=== PATIENT | female | born 1995 | race Caucasian/White ===

== ENCOUNTER 2019-07-04 10:09 | Emergency (ER) | payer OTHER ==
[~2019-07-04] VITALS: Ht 157.5 cm; Wt 49.2 kg
[2019-07-04] MEDS ORDERED: MULT-90 PO (10:17)
[2019-07-04 10:55] LABS: BASO # 0.1 10^3/uL (0.0-0.2); BASO % 0.4 % (0.0-1.0); EOS # 0.5 10^3/uL (0.0-0.5); EOS % 3.4 % (0.0-3.0); HEMATOCRIT 38.8 % (36.0-47.0); HEMOGLOBIN 12.5 g/dl (12.0-15.5); LYMPH # 2.3 10^3/uL (1.5-5.0); LYMPH % 17.4 % (24.0-44.0); MEAN CORPUSCULAR HEMOGLOBIN 30.2 pg (27.0-33.0); MEAN CORPUSCULAR HGB CONC 32.2 g/dl (32.0-36.5); MEAN CORPUSCULAR VOLUME 93.7 fl (80.0-96.0); MONO # 1.1 10^3/uL (0.0-0.8); MONO % 7.9 % (0.0-5.0); NEUTROPHILS # 9.4 10^3/uL (1.5-8.5); NEUTROPHILS % 70.5 % (36.0-66.0); PLATELET COUNT, AUTOMATED 281 10^3/uL (150-450); RED BLOOD COUNT 4.14 10^6/uL (4.00-5.40); WHITE BLOOD COUNT 13.4 10^3/uL (4.0-10.0)
[2019-07-04 11:25] LABS: ALBUMIN 4.2 GM/DL (3.2-5.2); ALT/SGPT 39 U/L (12-78); BILIRUBIN,DIRECT 0.2 MG/DL (0.0-0.2); BILIRUBIN,TOTAL 0.7 MG/DL (0.2-1.0); LIPASE 108 U/L (73-393); TOTAL PROTEIN 8.1 GM/DL (6.4-8.2)
[2019-07-04 12:13] LABS: CK-MB VALUE MASS < 1.0 NG/ML (<3.6); CPK CREATINE PHOSPHOKINASE 69 U/L (26-192); MB/CK RELATIVE INDEX 1.45 (< OR =4); TROPONIN I < 0.02 NG/ML (< 0.10)
[2019-07-04] MEDS ORDERED: SIME180C PO (12:23)
[2019-07-04] MEDS ORDERED: MIRA3350 PO (12:23)
[2019-07-04 12:27] VITALS: BP 115/77
--- NOTE | 2019-07-05 11:14 | ECGEPIP ---
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 Order Number: [id number] Reading MD: Minerva Cifuentes Measurements Intervals Energy Rate: 95 P: 64 LA: 131 QRS: 86 QRSD: 93 T: 51 QT: 347 QTc: 437 Interpretive Statements SINUS RHYTHM MINIMAL ST DEPRESSION NO PRIOR Electronically Signed on 07-05-2019 11:14:37 EDT by Minerva Cifuentes
== END 2019-07-04 12:31 | disposition home or self-care (01) ==
LOC: M ED 10:09
DX: R10.9 Unspecified abdominal pain (principal)